=== PATIENT | female | born 1975 | race Caucasian/White ===

== ENCOUNTER 2022-07-08 22:35 | Emergency (ER) | payer SELFPAY ==
[2022-07-08 23:14] VITALS: BP 198/129
[2022-07-08 23:17] VITALS: BP 181/110
[2022-07-08 23:30] VITALS: BP 169/99
[2022-07-08 23:45] VITALS: BP 176/104
[2022-07-09] VITALS: BP 159/93
[2022-07-09] MEDS ORDERED: VOLTAREN75 MG PO (00:45)
[2022-07-09 00:52] VITALS: BP 159/93
== END 2022-07-09 01:12 | disposition home or self-care (01) | DRG 563 ==
LOC: ED 22:35
DX: S39.012A Strain of muscle, fascia and tendon of lower back, initial encounter (principal); F17.210 Nicotine dependence, cigarettes, uncomplicated; X58.XXXA Exposure to other specified factors, initial encounter; Z86.16 Personal history of COVID-19

== ENCOUNTER 2023-06-13 21:42 | Emergency (ER) | payer SELFPAY ==
[2023-06-13] VITALS (8 sets, daily range): BP systolic 149–178; BP diastolic 97–109
[~2023-06-13 21:42] MED LIST: VOLTAREN75 MG PO
[2023-06-13 23:28] LABS: BASO% 0.2 % (0-3); EOS% 2.3 % (0-8); HEMATOCRIT 44.2 % (37.0-47.0); HEMOGLOBIN 14.5 g/dl (12.0-16.0); IMMATURE GRANULOCYTES 0.5 % (0.0-5.0); LYMPH% 19.1 % (15-41); MEAN CELL VOLUME 92.7 fL CALC (80.0-100.0); MEAN CORPUSCULAR HGB 30.4 pG CALC (26.0-32.0); MEAN CORPUSCULAR HGB CONC 32.8 g/dL CAL (32.0-36.0); MONO% 3.9 % (2-13); NEUT# 11.1 thou/uL (2.00-7.15); RED BLOOD COUNT 4.77 mill/uL (4.20-5.60); RED CELL DISTRI WIDTH 12.4 % (11.5-15.5)
[2023-06-13 23:39] LABS: ALBUMIN 4.1 g/dL (3.2-5.0); ALKALINE PHOSPHATASE 81 u/l (38-126); ANION GAP 12 (6-22 (CALC)); BILIRUBIN, TOTAL 0.3 mg/dL (0.02-1.3); BUN 14 mg/dL (7-17); BUN/CREATININE RATIO 15 (12-20 (CALC)); CARBON DIOXIDE 25 mmol/l (22-30); CHLORIDE 103 mmol/l (95-108); CREATININE 0.9 mg/dL (0.5-1.0); GFR FOR AFR.AMER. > 60 ML/MIN (>=60 (CALC)); GFR OTHER RACES > 60 ML/MIN (>=60 (CALC)); POTASSIUM 3.9 mmol/l (3.5-5.1); SGOT/AST 26 u/l (14-36); SODIUM 136 mmol/l (137-146)
[2023-06-14] VITALS: BP 173/98
[2023-06-14 00:15] VITALS: BP 161/90
[2023-06-14] MEDS ORDERED: BACTRIM DS1 TAB PO (00:23)
[2023-06-14] MEDS ORDERED: PREDNISONE20 MG PO (00:23)
[2023-06-14 00:25] VITALS: BP 161/90
== END 2023-06-14 00:32 | disposition home or self-care (01) | DRG 866 ==
LOC: ED 21:42
PROVIDERS: Emergency Medicine
DX: B09 Unspecified viral infection characterized by skin and mucous membrane lesions (principal); F17.200 Nicotine dependence, unspecified, uncomplicated